=== PATIENT | male | born 1955 | race American Indian/Alaskan Native ===

== ENCOUNTER 2017-11-13 23:09 | Emergency (ER) | payer MEDICARE, OTHER ==
[2017-11-13 23:27] VITALS: BP 142/82
[2017-11-14 00:03] LABS: CHLORIDE,CL 93 mmol/L (101-111)
[2017-11-14 00:06] LABS: SODIUM,NA 133 mmol/L (135-145)
[2017-11-14] MEDS ORDERED: Insulin Regular, Human 100 Units/ML 3 ML Vial IV ONE (00:22)
--- NOTE | 2017-11-14 00:42 | EDM.PDOC ---
ED HPI GENERAL MEDICAL PROBLEM - General Chief Complaint: General Stated Complaint: AMBULANCE - NOT FEELING WELL Time Seen by Provider: 11/13/17 23:15 Source of Information: Reports: Patient, EMS, Family History Limitations: Reports: Intoxication - History of Present Illness INITIAL COMMENTS - FREE TEXT/NARRATIVE: ED with report of abdominal pain, Daughter notes patient out side and when came in was full of woodticks, also feet smelly, abdomen swollen. Patient recently released from [facility] for treatment. daughter states he did drink a bit this afternoon. Daughter stated before going into treatment he was doing better when he was on fentanyl patch and percocet. Daughter wondering if we could fill those for him. Patient admits to drinking today but would not specify what or how much. Minimal input as to why he was brought to ED. Generalized Pain Score (Numeric/FACES): 8 - Related Data Allergies Allergy/AdvReac Type Severity Reaction Status Date / Time mustard Allergy Vomiting Verified 10/13/17 14:21 Home Meds: Home Meds metFORMIN [Glucophage] 1 tab PO DAILY 10/22/15 [History] Aspirin 81 mg PO DAILY 05/11/17 [History] Folic Acid 800 mcg PO DAILY 05/12/17 [History] Insulin Aspart [NovoLOG] 13 unit SQ TID 05/12/17 [History] Insulin Detemir [Levemir] 31 unit SQ ASDIRECTED 05/12/17 [History] Lisinopril 20 mg PO DAILY 05/12/17 [History] Multivitamin [Daily Multiple Vitamin] 1 each PO DAILY 05/12/17 [History] Pantoprazole [ProTONIX] 40 mg PO ACBREAKFAST 05/12/17 [History] Thiamine HCl 100 mg PO BID 05/12/17 [History] atorvaSTATin [Lipitor] 20 mg PO ASDIRECTED 05/12/17 [History] Acetaminophen [Pain & Fever] 650 mg PO Q8H PRN 09/27/17 [History] Hydrochlorothiazide 12.5 mg PO DAILY 09/27/17 [History] Ibuprofen 400 mg PO Q4H PRN 09/27/17 [History] Magnesium Chloride [Slow-Mag] 2 tab PO BID 09/27/17 [History] Nitroglycerin 0.4 mg SL ASDIRECTED PRN 09/27/17 [History] Vitamin B Complex 1 each PO BID 09/27/17 [History] cloNIDine [cloNIDine HCl] 0.1 mg PO ASDIRECTED PRN 09/27/17 [History] hydrOXYzine HCl [Atarax] 25 mg PO BID 09/27/17 [History] levETIRAcetam [Keppra] 500 mg PO BID 09/27/17 [History] Past Medical History Cardiovascular History: Reports: High Cholesterol, Hypertension Gastrointestinal History: Reports: Cirrhosis, Gastritis, GERD Genitourinary History: Reports: BPH, Renal Disease Musculoskeletal History: Reports: Other (See Below) Other Musculoskeletal History: muscle weakness Neurological History: Reports: TIA, Other (See Below) Other Neuro History: TBI. personality disorder Psychiatric History: Reports: Addiction Endocrine/Metabolic History: Reports: Diabetes, Type II - Past Surgical History GI Surgical History: Reports: Other (See Below) Social & Family History - Tobacco Use Smoking Status *Q: Never Smoker - Caffeine Use Caffeine Use: Reports: Coffee - Recreational Drug Use Recreational Drug Use: No ED ROS GENERAL - Review of Systems Review Of Systems: See Below HEENT: Reports: No Symptoms Respiratory: Reports: No Symptoms Cardiovascular: Reports: No Symptoms GI/Abdominal: Denies: Abdominal Pain Musculoskeletal: Reports: Foot Pain (bilateral ) Skin: Reports: Wound Neurological: Reports: Other (intoxicated) Psychiatric: Reports: Mood Lability ED EXAM, GENERAL - Physical Exam Exam: See Below Exam Limited By: Intoxication General Appearance: Alert, No Apparent Distress Eye Exam: Bilateral Eye: Conjunctival Injection Ears: Normal External Exam Nose: Normal Inspection Throat/Mouth: Normal Inspection Head: Atraumatic, Normocephalic Neck: Normal Inspection Respiratory/Chest: No Respiratory Distress, Lungs Clear, Normal Breath Sounds Cardiovascular: Normal Peripheral Pulses, Regular Rate, Rhythm GI/Abdominal: Normal Bowel Sounds, Other (ascities) Back Exam: Full Range of Motion Extremities: Other (open ulcer left great toe clean, no erythema to wound base. Callous to soles of feet with tinea fore foot. Plantar surface, pale discolorationsimilar to having been moist for period of time. ) Neurological: Alert, Oriented, Normal Cognition Psychiatric: Normal Mood Skin Exam: Warm, Dry, Normal Color, Wound/Incision (left great toe) Course - Vital Signs Last Recorded V/S: Last Vital Signs Temp 98.7 F 11/13/17 23:14 Pulse 90 11/13/17 23:14 Resp 18 11/13/17 23:14 BP 142/82 H 11/13/17 23:14 Pulse Ox 96 11/13/17 23:14 - Orders/Labs/Meds Labs: Laboratory Tests 11/13/17 11/13/17 11/13/17 Range/Units 23:38 23:38 23:38 WBC 6.1 (5.0-10.0) 10^3/uL RBC 4.90 (4.6-6.2) 10^6/uL Hgb 13.8 L D (14.0-18.0) g/dL Hct 38.5 L (40.0-54.0) % MCV 78.6 L D (80-100) fL MCH 28.2 (27.0-34.0) pg MCHC 35.8 H (33.0-35.0) g/dL Plt Count 164 (150-450) 10^3/uL Neut % (Auto) 59.8 (42.2-75.2) % Lymph % (Auto) 20.4 L (20.5-50.1) % Crosby % (Auto) 11.0 H (2-8) % Eos % (Auto) 8.5 H (1.0-3.0) % Baso % (Auto) 0.3 (0.0-1.0) % Sodium 133 L (135-145) mmol/L Potassium 3.9 (3.6-5.0) mmol/L Chloride 93 L (101-111) mmol/L Carbon Dioxide 25.0 (21.0-31.0) mmol/L Anion Gap 18.9 BUN 10 (7-18) mg/dL Creatinine 0.8 (0.6-1.3) mg/dL Est Cr Clr Drug Dosing TNP Estimated GFR (MDRD) > 60 BUN/Creatinine Ratio 12.50 Glucose 412 H* (74-105) mg/dL Calcium 8.9 (8.4-10.2) mg/dl Magnesium 1.8 (1.8-2.5) mg/dL Total Bilirubin 1.8 H (0.2-1.0) mg/dL AST 121 H (10-42) IU/L ALT 81 H (10-60) IU/L Alkaline Phosphatase 124 H (42-121) IU/L Ammonia 48 H (11-35) umol/L Total Protein 8.8 H (6.7-8.2) g/dl Albumin 4.2 (3.2-5.5) g/dl Globulin 4.6 Albumin/Globulin Ratio 0.91 Amylase 70 (28-100) U/L Urine Color (YELLOW) Urine Appearance (CLEAR) Urine pH (5.0-9.0) Ur Specific [place] (1.005-1.030) Urine Protein (NEGATIVE) Urine Glucose (UA) (NEGATIVE) Urine Ketones (NEGATIVE) Urine Occult Blood (NEGATIVE) Urine Nitrite (NEGATIVE) Urine Bilirubin (NEGATIVE) Urine Urobilinogen (0.2-1.0) mg/dL Ur Leukocyte Esterase (NEGATIVE) Urine RBC /HPF Urine WBC (0-5/HPF) /HPF Ur Epithelial Cells /HPF Urine Bacteria (0-FEW/HPF) /HPF Urine Opiates Screen (NEGATIVE) Ur Oxycodone Screen (NEGATIVE) Urine Methadone Screen (NEGATIVE) Ur Barbiturates Screen (NEGATIVE) U Tricyclic Antidepress (NEGATIVE) Ur Phencyclidine Scrn (NEGATIVE) Ur Amphetamine Screen (NEGATIVE) U Methamphetamines Scrn (NEGATIVE) Urine MDMA Screen (NEGATIVE) U Benzodiazepines Scrn (NEGATIVE) Urine Cocaine Screen (NEGATIVE) U Marijuana (THC) Screen (NEGATIVE) Ethyl Alcohol 322 mg/dL 11/14/17 11/14/17 Range/Units 00:25 00:25 WBC (5.0-10.0) 10^3/uL RBC (4.6-6.2) 10^6/uL Hgb (14.0-18.0) g/dL Hct (40.0-54.0) % MCV (80-100) fL MCH (27.0-34.0) pg MCHC (33.0-35.0) g/dL Plt Count (150-450) 10^3/uL Neut % (Auto) (42.2-75.2) % Lymph % (Auto) (20.5-50.1) % Crosby % (Auto) (2-8) % Eos % (Auto) (1.0-3.0) % Baso % (Auto) (0.0-1.0) % Sodium (135-145) mmol/L Potassium (3.6-5.0) mmol/L Chloride (101-111) mmol/L Carbon Dioxide (21.0-31.0) mmol/L Anion Gap BUN (7-18) mg/dL Creatinine (0.6-1.3) mg/dL Est Cr Clr Drug Dosing Estimated GFR (MDRD) BUN/Creatinine Ratio Glucose (74-105) mg/dL Calcium (8.4-10.2) mg/dl Magnesium (1.8-2.5) mg/dL Total Bilirubin (0.2-1.0) mg/dL AST (10-42) IU/L ALT (10-60) IU/L Alkaline Phosphatase (42-121) IU/L Ammonia (11-35) umol/L Total Protein (6.7-8.2) g/dl Albumin (3.2-5.5) g/dl Globulin Albumin/Globulin Ratio Amylase (28-100) U/L Urine Color Yellow (YELLOW) Urine Appearance Clear (CLEAR) Urine pH 6.5 (5.0-9.0) Ur Specific [place] 1.010 (1.005-1.030) Urine Protein Trace H (NEGATIVE) Urine Glucose (UA) >=1000 H (NEGATIVE) Urine Ketones Trace H (NEGATIVE) Urine Occult Blood Trace-intact H (NEGATIVE) Urine Nitrite Negative (NEGATIVE) Urine Bilirubin Negative (NEGATIVE) Urine Urobilinogen 2.0 H (0.2-1.0) mg/dL Ur Leukocyte Esterase Negative (NEGATIVE) Urine RBC 0-5 /HPF Urine WBC 0-5 (0-5/HPF) /HPF Ur Epithelial Cells Few /HPF Urine Bacteria Few (0-FEW/HPF) /HPF Urine Opiates Screen Negative (NEGATIVE) Ur Oxycodone Screen Negative (NEGATIVE) Urine Methadone Screen Negative (NEGATIVE) Ur Barbiturates Screen Negative (NEGATIVE) U Tricyclic Antidepress Negative (NEGATIVE) Ur Phencyclidine Scrn Negative (NEGATIVE) Ur Amphetamine Screen Negative (NEGATIVE) U Methamphetamines Scrn Negative (NEGATIVE) Urine MDMA Screen Negative (NEGATIVE) U Benzodiazepines Scrn Negative (NEGATIVE) Urine Cocaine Screen Negative (NEGATIVE) U Marijuana (THC) Screen Negative (NEGATIVE) Ethyl Alcohol mg/dL Meds: Medications Discontinued Medications Generic Name Dose Route Start Last Admin Trade Name Freq PRN Reason Stop Dose Admin Insulin Human Regular 5 unit 11/14/17 00:22 11/14/17 00:48 Humulin R IV 11/14/17 00:46 Not Given ONETIME ONE Insulin Human Regular 5 unit 11/14/17 00:47 11/14/17 00:49 Humulin R SUBCUT 11/14/17 00:48 5 units ONETIME ONE Administration Departure - Departure Time of Disposition: 00:30 Disposition: Home, Self-Care 01 Condition: Good Clinical Impression: Alcohol abuse, Alcoholism, Hyperglycemia - Discharge Information Instructions: Alcohol Abuse and Nutrition Forms: ED Department Discharge Additional Instructions: no drinking take prescribed medications keep feet clean and dry follow up with primary care for ongoing medication management
[2017-11-14] MEDS ORDERED: Insulin Regular, Human 100 Units/ML 3 ML Vial SUBCUT ONE (00:47)
== END 2017-11-14 01:15 | disposition home or self-care (01) ==
LOC: DL.ED 23:09
DX: F10.229 Alcohol dependence with intoxication, unspecified (principal); Y90.8 Blood alcohol level of 240 mg/100 ml or more; I10 Essential (primary) hypertension; E78.00 Pure hypercholesterolemia, unspecified; E11.9 Type 2 diabetes mellitus without complications; Z79.4 Long term (current) use of insulin; Z79.899 Other long term (current) drug therapy; Z79.82 Long term (current) use of aspirin; Z91.018 Allergy to other foods
CPT/HCPCS: 36415; 80053; 80305; 81001; 82140; 82150; 83735; 85025; 96372; 99283; G0480; J1815

== ENCOUNTER 2017-12-18 18:00 | Emergency (ER) | payer MEDICARE, OTHER ==
[2017-12-18 18:07] VITALS: BP 125/88
[2017-12-18 19:38] LABS: CHLORIDE,CL 88 mmol/L (101-111); SODIUM,NA 128 mmol/L (135-145)
== END 2017-12-18 19:36 | disposition left against medical advice (07) ==
LOC: DL.ED 18:00
DX: Z53.20 Procedure and treatment not carried out because of patient's decision for unspecified reasons (principal)
CPT/HCPCS: 36415; 80053; 83605; 85025; 87040; 87077; 87186; 99285

== ENCOUNTER 2017-12-19 12:51 | Emergency (ER) | payer MEDICARE, OTHER ==
[2017-12-19 13:38] VITALS: BP 138/84
[2017-12-19] MEDS ORDERED: Ondansetron 4 MG/2 ML SDV IV ONE (14:03)
[2017-12-19] MEDS ORDERED: Sodium Chloride 0.9% 1,000 ML IV SCH (14:15)
[2017-12-19] MEDS ORDERED: Vancomycin 1.5 GM in Sodium Chloride 0.9% 500 ML IV ONE (14:50)
--- NOTE | 2017-12-19 15:03 | EDM.PDOC ---
ED HPI GENERAL MEDICAL PROBLEM - General Chief Complaint: Possible Sepsis Stated Complaint: BY AMBULANCE Time Seen by Provider: 12/19/17 13:30 Source of Information: Reports: Patient History Limitations: Reports: No Limitations - History of Present Illness INITIAL COMMENTS - FREE TEXT/NARRATIVE: This 62 yo male patient was brought to the ED by [facility] due to possible sepsis. The patient reports that he has been sick for the past 4-5 days, but the area of concern (left posterior shoulder) has been getting much bigger. The patient report that he is feeling weak. The patient was seen in the ED yesterday, but left prior to full assessment. The patient has a history of ETOH use, diabetes and seizures. Duration: Day(s):, Constant, Getting Worse Location: Reports: Upper Extremity, Left, Generalized Quality: Reports: Ache, Dull Severity: Severe Improves with: Reports: None Worsens with: Reports: None Associated Symptoms: Reports: No Other Symptoms Treatments B[employer] MAIL AGENT: Reports: EKG, IV/IO Left Shoulder Pain Score (Numeric/FACES): 8 - Related Data Allergies Allergy/AdvReac Type Severity Reaction Status Date / Time mustard Allergy Vomiting Verified 10/13/17 14:21 Home Meds: Home Meds metFORMIN [Glucophage] 1 tab PO DAILY 10/22/15 [History] Aspirin 81 mg PO DAILY 05/11/17 [History] Folic Acid 800 mcg PO DAILY 05/12/17 [History] Insulin Aspart [NovoLOG] 13 unit SQ TID 05/12/17 [History] Insulin Detemir [Levemir] 31 unit SQ ASDIRECTED 05/12/17 [History] Lisinopril 20 mg PO DAILY 05/12/17 [History] Multivitamin [Daily Multiple Vitamin] 1 each PO DAILY 05/12/17 [History] Pantoprazole [ProTONIX] 40 mg PO ACBREAKFAST 05/12/17 [History] Thiamine HCl 100 mg PO BID 05/12/17 [History] atorvaSTATin [Lipitor] 20 mg PO ASDIRECTED 05/12/17 [History] Acetaminophen [Pain & Fever] 650 mg PO Q8H PRN 09/27/17 [History] Hydrochlorothiazide 12.5 mg PO DAILY 09/27/17 [History] Ibuprofen 400 mg PO Q4H PRN 09/27/17 [History] Magnesium Chloride [Slow-Mag] 2 tab PO BID 09/27/17 [History] Nitroglycerin 0.4 mg SL ASDIRECTED PRN 09/27/17 [History] Vitamin B Complex 1 each PO BID 09/27/17 [History] cloNIDine [cloNIDine HCl] 0.1 mg PO ASDIRECTED PRN 09/27/17 [History] hydrOXYzine HCl [Atarax] 25 mg PO BID 09/27/17 [History] levETIRAcetam [Keppra] 500 mg PO BID 09/27/17 [History] Past Medical History HEENT History: Reports: None Cardiovascular History: Reports: High Cholesterol, Hypertension Respiratory History: Reports: None Gastrointestinal History: Reports: Cirrhosis, Gastritis, GERD Genitourinary History: Reports: BPH, Renal Disease Musculoskeletal History: Reports: Other (See Below) Other Musculoskeletal History: muscle weakness Neurological History: Reports: TIA, Other (See Below) Other Neuro History: TBI. personality disorder Psychiatric History: Reports: Addiction Endocrine/Metabolic History: Reports: Diabetes, Type II Hematologic History: Reports: None Immunologic History: Reports: None Oncologic (Cancer) History: Reports: None Dermatologic History: Reports: None - Infectious Disease History Infectious Disease History: Reports: None - Past Surgical History Head Surgeries/Procedures: Reports: None GI Surgical History: Reports: Other (See Below) Social & Family History - Family History Family Medical History: Noncontributory - Tobacco Use Smoking Status *Q: Never Smoker - Caffeine Use Caffeine Use: Reports: Coffee - Alcohol Use Days Per Week of Alcohol Use: 7 Number of Drinks Per Day: 15 Total Drinks Per Week: 105 - Recreational Drug Use Recreational Drug Use: No ED ROS GENERAL - Review of Systems Review Of Systems: ROS reveals no pertinent complaints other than HPI. ED EXAM, SEPSIS - Physical Exam Exam: See Below Exam Limited By: No Limitations General Appearance: Alert, WD/WN, Moderate Distress Eye Exam: Bilateral Eye: EOMI, Normal Inspection, PERRL Ears: Normal External Exam, Normal Canal, Hearing Grossly Normal, Normal TMs Nose: Normal Inspection, Normal Mucosa, No Blood Throat/Mouth: Normal Inspection, Normal Lips, Normal Teeth, Normal Gums, Normal Oropharynx, Normal Voice, No Airway Compromise Head: Atraumatic, Normocephalic Neck: Normal Inspection, Supple, Non-Tender, Full Range of Motion Respiratory/Chest: No Respiratory Distress, Lungs Clear, Normal Breath Sounds, No Accessory Muscle Use, Chest Non-Tender Cardiovascular: Normal Peripheral Pulses, Regular Rate, Rhythm, No Edema, No Gallop, No JVD, No Murmur, No Rub GI/Abdominal Exam: Normal Bowel Sounds, Soft, Non-Tender, No Organomegaly, No Distention, No Abnormal Bruit, No Mass, Pelvis Stable Rectal (Males) Exam: Deferred Back: Normal Inspection, Full Range of Motion, NT Extremities: Arm Pain (left shoulder (posterior)) Neurological: Alert, Oriented Psychiatric: Normal Affect, Normal Mood Skin: Warm, Dry, Intact, Normal Color, No Rash Lymphatic: Bilateral: No Adenopathy Course - Vital Signs Last Recorded V/S: Last Vital Signs Temp 37.0 C 12/19/17 13:20 Pulse 111 H 12/19/17 13:20 Resp 16 12/19/17 13:20 BP 138/84 12/19/17 13:20 Pulse Ox 99 12/19/17 13:20 - Orders/Labs/Meds Orders: Active Orders 24 hr Category Date Time Status Chest 2V [CR] Urgent Exams 12/19/17 13:27 Taken Shoulder Comp Lt [CR] Urgent Exams 12/19/17 13:27 Taken CULTURE BLOOD [BC] Stat Lab 12/19/17 13:37 Received CULTURE BLOOD [BC] Stat Lab 12/19/17 13:42 Received CULTURE WOUND [RM] Stat Lab 12/19/17 14:45 Received DRUG SCREEN URINE BIORAD [URCHEM] Stat Lab 12/19/17 13:27 Ordered UA W/MICROSCOPIC [URIN] Stat Lab 12/19/17 13:27 Ordered Sodium Chloride 0.9% [Normal Saline] 1,000 ml Med 12/19/17 14:15 Active IV ASDIRECTED Vancomycin 1.5 gm Med 12/19/17 14:50 Active Sodium Chloride 0.9% [Normal Saline] 500 ml IV ONETIME Blood Culture x2 Reflex Set [OM.PC] Stat Oth 12/19/17 13:27 Ordered Medication Orders Sodium Chloride (Normal Saline) 1,000 mls @ 125 mls/hr IV ASDIRECTED ALLY Last Admin: 12/19/17 14:45 Dose: 125 mls/hr Vancomycin HCl 1.5 gm/ Sodium (Chloride) 500 mls @ 334 mls/hr IV ONETIME ONE Stop: 12/19/17 16:19 Labs: Laboratory Tests 12/19/17 12/19/17 12/19/17 Range/Units 13:37 13:37 13:37 WBC 15.9 H (5.0-10.0) 10^3/uL RBC 4.92 (4.6-6.2) 10^6/uL Hgb 14.2 (14.0-18.0) g/dL Hct 38.9 L (40.0-54.0) % MCV 79.1 L (80-100) fL MCH 28.9 (27.0-34.0) pg MCHC 36.5 H (33.0-35.0) g/dL Plt Count 154 (150-450) 10^3/uL Neut % (Auto) 85.1 H (42.2-75.2) % Lymph % (Auto) 4.5 L (20.5-50.1) % Rice % (Auto) 10.2 H (2-8) % Eos % (Auto) 0.1 L (1.0-3.0) % Baso % (Auto) 0.1 (0.0-1.0) % Add Manual Diff Yes Neutrophils % (Manual) 61 (42-75) % Band Neutrophils % 27 % Lymphocytes % (Manual) 3 L (20-50) % Monocytes % (Manual) 9 H (2-8) % Sodium 124 L (135-145) mmol/L Potassium 3.3 L (3.6-5.0) mmol/L Chloride 84 L (101-111) mmol/L Carbon Dioxide 13.0 L (21.0-31.0) mmol/L Anion Gap 30.3 BUN 20 H (7-18) mg/dL Creatinine 1.3 (0.6-1.3) mg/dL Est Cr Clr Drug Dosing 57.41 mL/min Estimated GFR (MDRD) 56 BUN/Creatinine Ratio 15.38 Glucose 411 H* (74-105) mg/dL Lactic Acid 3.1 H (0.5-2.2) mmol/L Calcium 8.5 (8.4-10.2) mg/dl Total Bilirubin 2.7 H (0.2-1.0) mg/dL AST 71 H (10-42) IU/L ALT 37 (10-60) IU/L Alkaline Phosphatase 141 H (42-121) IU/L Total Protein 8.1 (6.7-8.2) g/dl Albumin 3.1 L (3.2-5.5) g/dl Globulin 5.0 Albumin/Globulin Ratio 0.62 Ethyl Alcohol 197 mg/dL Meds: Medications Generic Name Dose Route Start Last Admin Trade Name Fresoniya PRN Reason Stop Dose Admin Sodium Chloride 1,000 mls @ 125 mls/hr 12/19/17 14:15 12/19/17 14:45 Normal Saline IV 125 mls/hr ASDIRECTED ALLY Administration Vancomycin HCl 1.5 gm/ Sodium 500 mls @ 334 mls/hr 12/19/17 14:50 Chloride IV 12/19/17 16:19 ONETIME ONE Discontinued Medications Generic Name Dose Route Start Last Admin Trade Name Freq PRN Reason Stop Dose Admin Ondansetron HCl 4 mg 12/19/17 14:03 12/19/17 14:45 Zofran IV 12/19/17 14:04 4 mg ONETIME ONE Administration Departure - Departure Time of Disposition: 15:28 Disposition: DC/[facility] to [facility] 02 Condition: Serious Clinical Impression: Sepsis affecting skin - Discharge Information Forms: ED Department Discharge Care Plan Goals: Discussed the history, examination, lab and x-ray results with Dr. Delgado ( [facility]). Dr. Delgado accepted the patient for continued evaluation and management. The patient will be transported by [facility]. - My Orders Last 24 Hours: My Active Orders 12/19/17 13:27 Chest 2V [CR] Urgent Shoulder Comp Lt [CR] Urgent DRUG SCREEN URINE BIORAD [URCHEM] Stat UA W/MICROSCOPIC [URIN] Stat Blood Culture x2 Reflex Set [OM.PC] Stat 12/19/17 13:37 CULTURE BLOOD [BC] Stat 12/19/17 13:42 CULTURE BLOOD [BC] Stat 12/19/17 14:15 Sodium Chloride 0.9% [Normal Saline] 1,000 ml IV ASDIRECTED 12/19/17 14:45 CULTURE WOUND [RM] Stat 12/19/17 14:50 Vancomycin 1.5 gm Sodium Chloride 0.9% [Normal Saline] 500 ml IV ONETIME - Assessment/Plan Last 24 Hours: My Active Orders 12/19/17 13:27 Chest 2V [CR] Urgent Shoulder Comp Lt [CR] Urgent DRUG SCREEN URINE BIORAD [URCHEM] Stat UA W/MICROSCOPIC [URIN] Stat Blood Culture x2 Reflex Set [OM.PC] Stat 12/19/17 13:37 CULTURE BLOOD [BC] Stat 12/19/17 13:42 CULTURE BLOOD [BC] Stat 12/19/17 14:15 Sodium Chloride 0.9% [Normal Saline] 1,000 ml IV ASDIRECTED 12/19/17 14:45 CULTURE WOUND [RM] Stat 12/19/17 14:50 Vancomycin 1.5 gm Sodium Chloride 0.9% [Normal Saline] 500 ml IV ONETIME
== END 2017-12-19 16:06 ==
LOC: DL.ED 12:51
DX: A41.9 Sepsis, unspecified organism (principal); E78.00 Pure hypercholesterolemia, unspecified; I10 Essential (primary) hypertension; K21.9 Gastro-esophageal reflux disease without esophagitis; E11.9 Type 2 diabetes mellitus without complications; Z91.018 Allergy to other foods; Z79.82 Long term (current) use of aspirin; Z79.4 Long term (current) use of insulin; Z79.899 Other long term (current) drug therapy
CPT/HCPCS: 36415; 71046; 73030; 80053; 83605; 85025; 87040; 87070; 96361; 96365; 96375; 99285; G0480; J2405; J3370; J7030; J7040; 87077; 87186; 99284